=== PATIENT | female | born 1940 | race Caucasian/White ===

== ENCOUNTER 2025-01-19 15:57 | Outpatient (CLI) | payer MEDICARE, SELFPAY ==
--- NOTE | ~2025-01-19 | XR_ITS ---
EXAM/PROCEDURE: XR sacrum coccyx min 2V HISTORY: Sensory urge incontininence COMPARISON: None available. TECHNIQUE: Sacral x-rays FINDINGS: The bones appear mildly osteopenic diffusely. There are also degenerative changes in the SI joints and both hips, which do not appear severe. No gross acute or aggressive bone or soft tissue process seen. Posterior pelvic/sacral bones are obscured on the frontal view due to overlying stool and bowel gas. IMPRESSION: No acute findings. Reviewed, dictated and finalized at location A. INE JOINER CEMENTER IMPRESSION: No acute findings.
--- OUTSIDE RECORDS SUMMARY | 2025-01-19 16:06 | XMS_ITS | Clinical Summary ---
Author Organization [facility] Address [address] [place] [address] Phone Care Team Providers Care Caretaker Name Role Phone Hamilton Lee MD Unavailable [phone] Jessie Buck MD Primary Care Provider [phone] Allergies Active Allergy Reactions Criticality Noted Date Comments Codeine Nausea,Other (see Comments) Low 12/12/2015 Tolterodine Other (see Comments) Medium 07/13/2021 Dry mouth and swollen tongue Tramadol Nausea,Other (see Comments) Low 12/12/2015 Medications alendronate (FOSAMAX) 70 MG Tablet TAKE 1 TABLET BY MOUTH EVERY 7 DAYS. 1 Active Chelated Calcium 200 MG Tablet Take 400 mg by mouth. Active Glucosamine 750 MG Tablet Take 1 Capsule by mouth. Active Multiple Vitamin (Multivitamins) Capsule Take 1 Capsule by mouth. Active Probiotic Product (Misc Intestinal Sandra Regulat) Capsule Take 1 Capsule by mouth. Active FeroSul 325 (65 Fe) MG Tablet TAKE 1 TABLET BY MOUTH EVERY DAY WITH BREAKFAST 1 Active fish oil-omega-3 fatty acids 1000 MG Capsule Take 1 Dose by mouth. Active [facility] D3 25 MCG (1000 UT) Capsule Take 1 Capsule by mouth daily. 3 Active meloxicam (MOBIC) 7.5 MG Tablet Take 7.5 mg by mouth daily. 3 Active oxybutynin (DITROPAN) 5 MG Tablet Take 5 mg by mouth. Active nortriptyline (PAMELOR) 25 MG Capsule Take 25 mg by mouth. 4 Active metoprolol tartrate (LOPRESSOR) 25 MG Tablet Take 25 mg by mouth. 1 Active Estradiol (Yuvafem) 10 MCG Tablet prn 8 Active busPIRone (BUSPAR) 5 MG Tablet Start with 1 tablet three times daily 3 Active Active Problems No known active problems Immunizations Immunization Administration Dates Next Due Covid-19, Mrna, Lnp-s, Pf, 1 00 Mcg Or 50 Mcg Dose (MODERNA) 04/12/2020,03/15/2020 Influenza Vaccine, Quadrivalent, PF 12/24/2018 Influenza, High-dose, Quadrivalent 11/01/2019,,12/06/2016 Influenza, high-dose, trivalent, PF 12/11/2017,0 12/06/2016 Pneumococcal Vaccine - 13 Valent 10/20/2015 Pneumococcal Vaccine Adult - 23 Valent 7 TDAP Vaccine 04/03/2012 Zoster Vaccine Recombinant 07/24/2018,02/16/2018 Family History Medical History Relation Name Comments Cancer Mother breast Cancer Sister breast Relation Name Status Comments Father Keerthi gold Mother Sister Alive Social History Tobacco Use Types Packs/Day Years Used Date Smoking Tobacco: Never Smokeless Tobacco: Never Tobacco Cessation:Counseling Given: Not Answered PHQ-2 Answer Date Recorded Total Score - Questions 1-9 0 05/10 Comments Unknown Sex and Gender Information Value Date Recorded Sex Assigned at Not on file Legal Sex Female 2:02 PM CDT Gender Identity Not on file Sexual Orientation Not on file Last Filed Vital Signs Vital Sign Reading Time Taken Comments Blood Pressure 128/70 05/08/2024 10:51 AM ELECTORAL OFFICER Pulse 89 05/08/2024 10:51 AM ELECTORAL OFFICER Temperature 36.2 C (97.2 F) 05/08/2024 10:51 AM ELECTORAL OFFICER Respiratory Rate 20 05/08/2024 10:51 AM ELECTORAL OFFICER Oxygen Saturation 99% 05/08/2024 10:51 AM ELECTORAL OFFICER Inhaled Oxygen Concentration - - Weight 46.3 kg (102 lb) 05/08/2024 10:51 AM ELECTORAL OFFICER Height 162.6 cm (5' 4) 05/08/2024 10:51 AM ELECTORAL OFFICER Body Mass Index 17.51 05/08/2024 10:51 AM ELECTORAL OFFICER Plan of Treatment Upcoming Encounters Date Type Department Care Team (Late st Contact Info) Description 05/07/2025 11:15 AM ELECTORAL OFFICER Office Visit [facility] [id number] [facility] [address] [place] [address] Hamilton Lee MD [address] [place] [address] Health Maintenance Due Date Last Done Comments Hepatitis C Virus (HCV) Screening 1940 Medicare Initial AWV G0438 09/09/2005 DEXA Bone Density 06/26/2024 06/26/2022, , 05/09/2018 Influenza Immunization (#1) 11/10/202406/2023, 11/29/2022, 11/22/2021, Additional history exists SARS-COV-2 Immunization ( season) 2024 12/14/2023, 11/29/2022, 08/04/2022, Additional history exists Td Immunization Every 10 Years (Adults With 1 Tdap) 04/21/2034 04/21/2024, 12/21/2023, 05/17/2022, Additional history exists Pneumococcal Immunization (50+ years) Completed 10/18/2016, 10/20/2015 Zoster Immunization Completed 07/24/2018, 8 Respiratory Syncytial Virus (RSV) Immunization (Adult) Completed 01/24/2023 DTaP/Tdap/Td Immunization Discontinued 2024, 12/21/2023, 05/17/2022, Additional history exists Hepatitis B Immunization Aged Out No longer eligible based on patient's age to complete this topic Human Papillomavirus (HPV) Immunization Aged Out No longer eligible based on patient's age to complete this topic Meningococcal Immunization (ACWY) Aged Out No longer eligible based on patient's age to complete this topic Rotavirus Immunization Aged Out No lo nger eligible based on patient's age to complete this topic Insurance MEDICARE C AETNA Care Teams Caretaker Relationship Specialty [place] [address] [address] PCP - General Family Medicine 09/14/22 Hamilton Lee MD Consulting Physician Oncology 10/26/20
--- OUTSIDE RECORDS SUMMARY | 2025-01-19 16:06 | XMS_ITS | Clinical Summary ---
Author Organization [address] Address [address] [place] [address] Care Team Providers Care Care Support Representative Name Role Phone Jessie Buck MD Primary Care Provider [phone] Allergies Active Allergy Reactions Criticality Noted Date Comments Codeine Stomach upset Low 07/16/2023 Tramadol Hives Medium 07/16/2023 Medications alendronate (FOSAMAX) 70 mg tablet Take 1 tablet (70 mg total) by mouth once a week 09/20/2022 Active busPIRone (BUSPAR) 5 mg tablet Take 1 tablet (5 mg total) by mouth 12/21/2022 Active metoprolol tartrate (LOPRESSOR) 25 mg immediate release tablet Take 1 tablet (25 mg total) by mouth 2 (two) times a day 10/28/2020 Active nortriptyline (PAMELOR) 10 mg capsule Take 1 capsule (10 mg total) by mouth daily 09/14/2022 Active oxyBUTYnin (DITROPAN) 5 mg tablet Take 1 tablet (5 mg total) by mouth 2 (two) times a day Active estradioL (Yuvafem) 10 mcg tablet Insert 1 tablet (10 mcg total) into the vagina 10/04/2017 Active glucosamine HCl 750 mg tablet Take 1 capsule by mouth 3 (three) times a day Active Active Problems Problem Noted Date Diagnosed Date Hoarseness 09/09/2024 Anterior cervical lymphadenopathy 09/09/2024 Epistaxis 07/16/2023 Deviated nasal septum 07/16/2023 Surgical History Surgery Date Site/Laterality Comments ANKLE SURGERY 03/12/2019 - 03/11/2020 MANDIBLE FRACTURE SURGERY 03/12/1953 - 03/11/1954 Medical History Medical History Date Comments Anxiety Hoarseness Social History Tobacco Use Types Packs/Day Years Used Date Smoking Tobacco: Never Smokeless Tobacco: Never Tobacco Cessation:Counseling Given: Not Answered Comments Unknown Sex and Gender Information Value Date Recorded Sex Assigned at Not on file Legal Sex 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 Gender Identity Not on file Sexual Orientation Not on file Last Filed Vital Signs Vital Sign Reading Time Taken Comments Blood Pressure - - Pulse - - Temperature 36.7 C (98 F) 09/09/2024 2:58 PM CDT Respiratory Rate 18 07/16/2023 3:14 PM CDT Oxygen Saturation - - Inhaled Oxygen Concentration - - Weight 43.5 kg (96 lb) 09/09/2024 2:58 PM CDT Height 162.6 cm (5' 4) 09/09/2024 2:58 PM CDT Body Mass Index 16.48 09/09/2024 2:58 PM CDT Plan of Treatment Health Maintenance Due Date Last Done Comments Depression Screening 1940 Fall Risk Assessment 1940 Hepatitis B Screening 09[birth year]29/1958 Well Visit 65+ 09/29/2004 Osteoporosis Screening-Bone Density Scan 06/26/2024 06/26/2022 Covid-19 Vaccine ( - 2024-2 6 season) 2024 11/29/2022, 08/04/2022, 12/30/2021, Additional history exists Influenza Vaccine (#1) 2024 , 11/29/2022, 11/22/2021, Additional history exists DTaP/Tdap/Td Vaccine (8 - Td or Tdap) 04/21/2034 04/21/2024, 12/21/2023, 05/17/2022, Additional history exists Pneumococcal vaccine 65+ Completed 017, 10/20/2015, 03/12/2008 Zoster Vaccine Completed 07/24/2018, 02/16/2018 Insurance [place] [id number] [employer]ET[employer] MEDICARE [employer] AET MEDICARE [facility] Care Teams Care Support Representative Relationship Specialty [place] [address] [address] PCP - General Family Medicine 06/19/23
== END 2025-01-19 15:58 | disposition home or self-care (01) ==
PROVIDERS: PCP Internal Medicine; Visit Provider Urology
DX: N39.41 Urge incontinence (principal)
CPT/HCPCS: 72220